=== PATIENT | female | born 1930 | race Caucasian/White ===

== ENCOUNTER → 2017-01-25 | Outpatient (CLI) | payer OTHER, BC ==
[~2017-01-25] MED LIST: ASCORBIC ACID500 M3 PO; ASPIRIN EC325 MG PO; ATIVAN0.5 MG PO; BYSTOLIC10 MG PO; BYSTOLIC20 MG PO; CELEBREX200 MG PO; CELECOXIB200 MG PO; COZAAR100 MG PO; CRESTOR10 MG PO; DICYCLOMINE HCL20 MG PO; DIOVAN160 MG PO; DOCUSATE SODIU100 MG PO; DOK PLUS TABLE1 EACH PO; ENDOCET 5-3251 EACH PO; FOLIC ACID1 MG PO; HYDROCODON-ACE1 EAC7 PO; IRON325 M1 PO; LEXAPRO10 MG PO; LO-DOSE ASPIRIN81 M1 PO; MIRALAX17 GM PO; OMEPRAZOLE20 M2 PO; PERCOCET 5/31 TABLET PO; POLYETHYLENE GL17 GM PO; PRILOSEC20 MG; ROXICET 5-3251 EACH PO; SENNA-TIME S T1 EACH PO; TEKTURNA150 MG PO; THERAGRAN1 TABLET PO; TRAMADOL HCL50 MG PO; ULTRAM50 MG PO; VICODIN 5-3001 EACH PO; VICODIN,LORT1 TABLET PO; VITAMIN D31000 UNI2 PO; WARFARIN SODIUM2 MG PO
== END | disposition home or self-care (01) ==
LOC: NUC 10:51
DX: M47.893 Other spondylosis, cervicothoracic region (principal); Z96.642 Presence of left artificial hip joint; Z96.653 Presence of artificial knee joint, bilateral; R93.7 Abnormal findings on diagnostic imaging of other parts of musculoskeletal system
CPT/HCPCS: 78306; A9503